=== PATIENT | male | born 1980 | race Two or more races ===

== ENCOUNTER 2017-10-24 21:41 | Emergency (ER) | payer SELFPAY ==
[~2017-10-24] VITALS: Ht 172.7 cm; Wt 72.6 kg
[2017-10-24] MEDS ORDERED: ALBUTEROL2.5 MG/3 M INH (22:14)
[2017-10-24] MEDS: Tetanus/Diptheria/Pertussis Vaccine 0.5ml Syr IM ONE (22:58)
[2017-10-24 23:04] VITALS: BP 148/87
[2017-10-24] MEDS ORDERED: IBUPROFEN600 MG ORAL (23:05)
[2017-10-24 23:10] VITALS: BP 148/87
--- NOTE | 2017-10-25 02:07 | Emergency Room Report ---
History of Present Illness General Chief Complaint: Medical Clearance Source: Patient Present Illness HPI Patient is a 36-year-old male presented for medical clearance for booking. Patient reportedly fall to the ground while being arrested. The patient reports being right-hand dominant. He reports having pain to his right hand as well as to his left hand. He denies other locations of pain. He states he works in construction. Allergies: Coded Allergies: No Known Allergies (Unverified , 10/24/17) Patient History Past Medical History: see triage record Reviewed Nursing Documentation: PMH: Agreed, PSxH: Agreed Nursing Documentation-PMH Past Medical History: No History, Except For Hx Asthma: Yes Review of Systems All Other Systems: negative except mentioned in HPI Physical Exam Vital Signs Date Time Temp Pulse Resp B/P (MAP) Pulse Ox O2 Delivery O2 Flow Rate FiO2 10/24/17 22:11 98.0 79 14 148/87 98 Room Air 98.1 General Appearance: well appearing, no apparent distress, alert, GCS 15 Head: normocephalic, atraumatic ENT: hearing grossly normal, normal voice Neck: full range of motion, supple Respiratory: no respiratory distress, speaking full sentences Musculoskeletal: no calf tenderness Neurologic: normal inspection, alert, oriented x3, responsive, de icer finisher III-XII nml as tested, motor strength/tone normal, normal gait Psychiatric: mood/affect normal Skin: no rash, abrasions - bilateral hand right greater than left Medical Decision Making Diagnostic Impression: Primary Impression: Hand contusion ER Course Patient presented for hand pain. Differential diagnosis included wasn't limited to fracture, dislocation, sprain, contusion among others. Because of complexity of patient's casen imaging studies were ordered. X-rays of left hand 3 views interpreted by me showed normal bony alignment without evident fracture. X-ray right hand 3 views interpreted by me showed normal bony alignment without any fracture.. Patient is medically cleared for booking tetanus vaccine was updated. The patient is advised to follow up with primary care doctor in 1-2 days. Patient is advised to return if any worsening condition or if any changes in status that are concerning. This report is dictated with VCE end polisher software which may occasionally lead to discrepancies related to use of this software. Last Vital Signs Date Time Temp Pulse Resp B/P (MAP) Pulse Ox O2 Delivery O2 Flow Rate FiO2 10/24/17 23:04 98.1 79 14 148/87 98 Room Air 98.1 Status: improved Disposition: HOME, SELF-CARE Condition: Stable Scripts Ibuprofen* (MOTRIN*) 600 Mg Tablet 600 MG ORAL Q8H Y for For Pain, #30 TAB 0 Refills Prov: Tyree Mora 10/24/17 Patient Instructions: Hand Contusion Tyree Mora Oct 25, 2017 02:06
--- NOTE | 2017-10-25 11:27 | Diagnostic Imaging Report ---
Indication: Reason For Exam: PAIN Technique: 3 views right hand Comparison: none Findings: No acute fractures. No dislocations. The joint spaces are preserved Impression: Negative
--- NOTE | 2017-10-25 11:29 | Diagnostic Imaging Report ---
Indication: Pain, status post fall Technique: 3 views left hand Comparison: none Findings: No acute fractures. No dislocations. Joint spaces are preserved Impression: Negative
== END 2017-10-24 23:10 | disposition home or self-care (01) ==
LOC: EMR 22:30
DX: S60.221A Contusion of right hand, initial encounter (principal); S60.222A Contusion of left hand, initial encounter; S60.511A Abrasion of right hand, initial encounter; S60.512A Abrasion of left hand, initial encounter; W19.XXXA Unspecified fall, initial encounter; Y92.89 Other specified places as the place of occurrence of the external cause; Z23 Encounter for immunization; J45.909 Unspecified asthma, uncomplicated
CPT/HCPCS: 90471; 90715; 99283